=== PATIENT | female | born 2000 | race Caucasian/White ===

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

== ENCOUNTER → 2022-05-14 | Outpatient (CLI) | payer OTHER ==
[2022-05-14 13:03] VITALS: BP 120/69; PULSE 128; RESP 18; TEMP 98.2
--- NOTE | 2022-05-14 13:31 | P.GSHP ---
History of Present Illness H&P Date: 05/14/22 Chief Complaint: Bilateral macromastia Chiquis is a 22 year old white female seen in consultation for Dr. Mccabe regarding macromastia. She is complaining of significant lower mid back pain related to the size of her breasts. She also complains of shoulder notching. Her bra size is a 52. She is not complaining of any fungal infections under her breasts. She has not had any mammogram or ultrasound performed. She is not complaining of any lumps masses or nodules in either breast. She is not complaining of any nipple discharge she does have eczema on her breast. Caffeine: 1 can pop/day nicotine:none chocolate: none BCP: 2 months; stopped Family history: mother: colon cancer maternal grandmother: cancer ? type Hormonal History: menarche: 10 G0 periods regular; LMP 3 weeks ago Surgical History: none Medical History: allergies shots BID Social History: nicotine: none alcohol: none drugs: none - Constitutional Constitutional: Denies chills, Denies fever - EENT Eyes: denies blurred vision, denies pain Ears: deny: decreased hearing, tinnitus Ears, nose, mouth and throat: Reports headache, Denies sore throat - Breasts Breasts: bilateral: as per HPI - Cardiovascular Cardiovascular: Denies chest pain, Denies shortness of breath - Respiratory Respiratory: Denies cough, Denies 7 - Gastrointestinal Gastrointestinal: Denies abdominal pain, Denies diarrhea, Denies nausea, Denies vomiting - Genitourinary (Female) Genitourinary: Denies dysuria, Denies hematuria - Menstruation Menstruation: Reports period normal - Musculoskeletal Musculoskeletal: Denies myalgias - Integumentary Comment: Eczema seeing a motor racer in June Integumentary: Denies pruritus, Denies rash - Neurological Neurological: Denies numbness, Denies weakness - Psychiatric Psychiatric: Denies anxiety, Denies depression - Endocrine Endocrine: Denies fatigue, Denies weight change - Hematologic/Lymphatic Comment: none - Allergic/Immunologic Allergic/Immunologic: Reports as per HPI, Reports seasonal allergies Past Medical History Past Medical History: No Reported History History of Any Multi-Drug Resistant Organisms: None Reported Past Surgical History: No Surgical Hx Reported Past Psychological History: No Psychological Hx Reported Smoking Status: Never smoker Past Alcohol Use History: None Reported Past Drug Use History: None Reported Medications and Allergies Home Medications Medication Instructions Recorded Confirmed Type Loratadine [Claritin] 10 mg PO DAILY #30 tab 08/31/17 05/14/22 Rx Hydrocortisone Cream 1 applic TOPICAL BID PRN #30 gm 02/19/18 05/14/22 Rx [Hydrocortisone 1% Cream] Ibuprofen 800 mg PO Q6HR PRN #20 tablet 05/28/19 05/14/22 Rx Albuterol Inhaler [Ventolin Hfa 1 - 2 puff INHALATION RT-Q6H PRN 06/15/19 05/14/22 Rx Inhaler] #1 inhaler Clotrimazole Cream [Lotrimin Cream] 1 applic TOPICAL BID 05/14/22 05/14/22 History Fluticasone Nasal [place] [Flonase 2 spr EA NOSTRIL DAILY PRN 05/14/22 05/14/22 History Nasal [place]] Montelukast [Singulair] 10 mg PO DAILY 05/14/22 05/14/22 History Allergies Allergy/AdvReac Type Severity Reaction Status Date / Time cat dander Allergy Unknown Verified 05/14/22 12:56 peanut Allergy Anaphylaxis Verified 05/14/22 12:56 tree nut Allergy Anaphylaxis Verified 05/14/22 12:56 Surgical - Exam Vital Signs Temp Pulse Resp BP Pulse Ox 98.2 F 128 H 18 120/69 96 05/14/22 13:00 05/14/22 13:00 05/14/22 13:00 05/14/22 13:00 05/14/22 13:00 BMI: 45.4 - General no distress - Eyes normal ocular movement - ENT no hearing loss - Neck trachea midline - Respiratory normal respiratory effort, clear to auscultation - Cardiovascular Rhythm: regular Heart Sounds: normal: S1, S2 - Abdomen Abdomen: soft, non tender, no guarding, no rigid, no rebound - Integumentary Eczema - Neurologic no disoriented, no combative - Musculoskeletal normal gait - Psychiatric oriented to time, oriented to person, oriented to place, speech is normal, memory intact Breast Exam: BRA: 50G Inspection: The lateral grade 3 ptosis, eczema at the nipple areolar region on both breast, bilateral macromastia Palpation: Right breast: Multi-positional exam fibrocystic changes no dominant masses or nodules of concern Right axilla: No adenopathy of concern Left breast: Multi-positional exam fibrocystic changes no dominant masses or nodules of concern Left axilla: No adenopathy of concern Assessment and Plan Assessment: Impression: Symptomatic bilateral macromastia BMI 45.4 Bilateral eczema nipple areolar complexes Plan: Follow-up with dermatology Encourage the patient to lose weight; will follow up after loses 50 pounds CC: Fabio Rubio NP
== END ==
LOC: WWCWWP 12:46
PROVIDERS: ATTEND Surgery
DX: Z85.3 Personal history of malignant neoplasm of breast (principal); N60.11 Diffuse cystic mastopathy of right breast; N60.12 Diffuse cystic mastopathy of left breast; Z91.010 Allergy to peanuts; Z91.018 Allergy to other foods; Z91.048 Other nonmedicinal substance allergy status

== ENCOUNTER 2023-02-20 16:55 | Emergency (ER) | payer OTHER ==
[2023-02-20] MEDS ORDERED: PHENAZOPYRIDINE 200 MG TAB PO STA (17:34)
[2023-02-20] MEDS ORDERED: IBUPROFEN 800 MG TAB PO STA (17:34)
[2023-02-20 18:04] LABS: Appearance,Urine Cloudy (Clear); Bacteria,Urine Rare /hpf; Bilirubin,Urine Negative (Negative); Blood,Urine Small (Negative); Color,Urine Yellow; Glucose,Urine (UA) Negative (Negative); Ketones,Urine Negative (Negative); Leukocyte Esterase,Urine Small (Negative); Mucus,Urine Many /hpf; Nitrite,Urine Negative (Negative); PH, Urine 5.5 (5.0-8.0); Protein,Urine Trace (Negative); RBC,Urine 53 /hpf (0-5); Specific Gravity,Urine 1.025 (1.001-1.035); Squamous Epithelial Cell,Urine 21 /hpf (0-4); Urobilinogen,Urine <2.0 mg/dL (<2.0); WBC,Urine 5 /hpf (0-5)
--- NOTE | 2023-02-20 19:12 | CT ---
EXAMINATION TYPE: CT abdomen pelvis wo con DATE OF EXAM: 02/20/2023 COMPARISON: None INDICATION: Right flank pain x 1 week with hematuria DLP: 1784 mGycm, Automated exposure control for dose reduction was used. CONTRAST: 0 mL of Isovue 300. Study performed without Oral Contrast TECHNIQUE: Axial images were obtained from above the diaphragm to the pubic rami in the axial plane a t 5 mm thick sections. Reconstructed images are reviewed on the computer in the coronal plane. FINDINGS: Limited CT sections are obtained the lung bases. The lung bases are clear. CT ABDOMEN: Liver: Normal Spleen: Normal Pancreas: Normal Adrenal glands: The adrenal glands are normal. Gallbladder: Normal Kidneys: No masses are evident. No hydronephrosis is present. No cysts are present. There is a non obstructing renal stone superior pole right kidney measuring 0.3 cm. There is a nonobstructing inferi or pole right renal calcification 0.2 cm. No hydroureter is evident. Aorta: Vascular calcification is within the aorta. Inferior vena cava: Normal. CT PELVIS: Loops of bowel within the abdomen and pelvis are normal. This study is a lateral contrast limitin g bowel evaluation Appendix: Normal as visualized. Urinary bladder: Normal. Genitourinary structures: Uterus is unremarkable. Adnexa are normal. Osseous structures: No suspicious lytic or sclerotic lesions. IMPRESSION: 1. Nonobstructing punctate renal stones present bilaterally.
--- NOTE | 2023-02-20 19:41 | ED ---
Back Pain HPI - General Chief Complaint: Back Pain/Injury Stated Complaint: Back pain Time Seen by Provider: 02/20/23 17:14 Source: patient - History of Present Illness Initial Comments: Patient is a 23-year-old female who presents to the emergency department for back pain. Patient has burning with urination which started one week ago. Today she started to have right back pain. Denies abdominal pain, nausea, vomiting. Denies fever and chills. Denies history of kidney infection and stone. - Related Data Home Medications Medication Instructions Recorded Confirmed Clotrimazole Cream [Lotrimin Cream] 1 applic TOPICAL BID 05/14/22 05/14/22 Fluticasone Nasal [place] [Flonase 2 spr EA NOSTRIL DAILY PRN 05/14/22 05/14/22 Nasal [place]] Montelukast [Singulair] 10 mg PO DAILY 05/14/22 05/14/22 Previous Rx's Medication Instructions Recorded Loratadine [Claritin] 10 mg PO DAILY #30 tab 08/31/17 Hydrocortisone Cream 1 applic TOPICAL BID PRN #30 gm 02/19/18 [Hydrocortisone 1% Cream] Ibuprofen 800 mg PO Q6HR PRN #20 tablet 05/28/19 Albuterol Inhaler [Ventolin Hfa 1 - 2 puff INHALATION RT-Q6H PRN 06/15/19 Inhaler] #1 inhaler Cephalexin [Keflex] 500 mg PO Q12HR #14 cap 02/20/23 Phenazopyridine [Pyridium] 200 mg PO TID #6 tablet 02/20/23 Allergies Allergy/AdvReac Type Severity Reaction Status Date / Time cat dander Allergy Unknown Verified 02/20/23 17:11 peanut Allergy Anaphylaxis Verified 02/20/23 17:11 tree nut Allergy Anaphylaxis Verified 02/20/23 17:11 Review of Systems ROS Statement: Those systems with pertinent positive or pertinent negative responses have been documented in the HPI. ROS Other: All systems not noted in ROS Statement are negative. Past Medical History Past Medical History: No Reported History History of Any Multi-Drug Resistant Organisms: None Reported Past Surgical History: No Surgical Hx Reported Past Psychological History: No Psychological Hx Reported Smoking Status: Never smoker Past Alcohol Use History: None Reported Past Drug Use History: None Reported General Exam General appearance: alert Head exam: Present: atraumatic, normocephalic, normal inspection Eye exam: Present: normal appearance, PERRL, EOMI. Absent: scleral icterus, conjunctival injection, periorbital swelling Respiratory exam: Present: normal lung sounds bilaterally. Absent: respiratory distress, wheezes, rales, rhonchi, stridor Cardiovascular Exam: Present: regular rate, normal rhythm, normal heart sounds. Absent: systolic murmur, diastolic murmur, rubs, gallop, clicks Back exam: Present: paraspinal tenderness (right). Absent: CVA tenderness (R), CVA tenderness (L) Neurological exam: Present: alert Expanded Sensory exam: Upper Extremity Light Touch: Normal, Lower Extremity Light Touch: Normal Motor strength exam: RUE: 5, LUE: 5, RLE: 5, LLE: 5 Psychiatric exam: Present: normal affect, normal mood Skin exam: Present: warm, dry, intact, normal color. Absent: rash Course Vital Signs 02/20/23 02/20/23 02/20/23 17:07 18:53 21:29 Temperature 98.7 F 98.1 F 98.8 F Pulse Rate 122 H 101 H 81 Respiratory 18 18 16 Rate Blood Pressure 105/69 109/76 120/83 O2 Sat by Pulse 95 99 95 Oximetry Medical Decision Making - Medical Decision Making Was pt. sent in by a medical professional or institution ([facility] Perdomo, RISK CONSULTING TREASURY DIRECTOR, urgent care, hospital, or [facility]...) When possible be specific @ -No Did you speak to anyone other than the patient for history (EMS, parent, family, police, friend...)? What history was obtained from this source @ -No Did you review nursing and triage notes (agree or disagree)? Why? @ -I reviewed and agree with nursing and triage notes Were old charts reviewed (outside hosp., previous admission, EMS record, old EKG, old radiological studies, urgent care reports/EKG's, [facility] records)? Report findings @ -No old charts were reviewed Differential Diagnosis (chest pain, altered mental status, abdominal pain women, abdominal pain men, vaginal bleeding, weakness, fever, dyspnea, syncope, headache, dizziness, GI bleed, back pain, seizure, CVA, palpatations, mental health)? @ -UTI, kidney infection, kidney stone. Discussed this is not meant to be all-inclusive EKG interpreted by me (3pts min.). @ -As above X-rays interpreted by me (1pt min.). @ -None done CT interpreted by me (1pt min.). @ -Nonobstructing punctate renal stones bilaterally no hydronephrosis U/S interpreted by me (1pt. min.). @ -None done What testing was considered but not performed or refused? (CT, X-rays, U/S, l abs)? Why? @ -None What meds were considered but not given or refused? Why? @ -Patient declined IV Rocephin and fluids mother wants to go home Did you discuss the management of the patient with other professionals (professionals i.e. , PA, RISK CONSULTING TREASURY DIRECTOR, lab, RT, psych nurse, social service director, demo coordinator, teacher, marketing officer, case aide)? Give summary @ -No Was smoking cessation discussed for >3mins.? @ -No Was critical care preformed (if so, how long)? @ -No Were there social determinants of health that impacted care today? How? (Homelessness, low income, unemployed, alcoholism, drug addiction, transportation, low edu. Level, literacy, decrease access to med. care, correction, rehab)? @ -No Was there de-escalation of care discussed even if they declined (Discuss DNR or withdrawal of care, Hospice)? DNR status @ -No What co-morbidities impacted this encounter? (DM, HTN, Smoking, COPD, CAD, Cancer, CVA, ARF, Chemo, Hep., AIDS, mental health diagnosis, sleep apnea, morbid obesity)? @ -None Was patient admitted / discharged? Hospital course, mention meds given and route, prescriptions, significant lab abnormalities, going to OR and other pertinent info. @ -Patient presented for back pain and dysuria. She is nontoxic appearing, afebrile. No CVA tenderness.Urinalysis reveals rare bacteria with small leukocyte esterase, 53 rbc's. With concern for kidney stone laboratory studies and CT obtained. There is mild leukocytosis at 13.4. CT interpreted by myself shows bilateral nonobstructing stones no hydronephrosis. No evidence of pyelonephritis. Pain controlled. Results discussed with patient.. Patient will be discharged with Keflex for urinary tract infection. Discussed return parameters in detail Undiagnosed new problem with uncertain prognosis? @ -No Drug Therapy requiring intensive monitoring for toxicity (Heparin, Nitro, Insulin, Cardizem)? @ -No Were any procedures done? @ -No Diagnosis/symptom? @ -UTI Acute, or Chronic, or Acute on Chronic? @ -[Acute Uncomplicated (without systemic symptoms) or Complicated (systemic symptoms)? @ -uncomplicated Side effects of treatment? @ -No Exacerbation, Progression, or Severe Exacerbation? @ -No Poses a threat to life or bodily function? How? (Chest pain, USA, [place], pneumonia, PE, COPD, DKA, ARF, appy, cholecystitis, CVA, Diverticulitis, Homicidal, Suicidal, threat to staff... and all critical care pts) @ -No Dr. Oconnell is my attending - Lab Data Result diagrams: 02/20/23 20:06 02/20/23 20:06 Lab Results 02/20/23 02/20/23 02/20/23 Range/Units 17:23 17:23 18:38 WBC (3.8-10.6) k/uL RBC (3.80-5.40) m/uL Hgb (11.4-16.0) gm/dL Hct (34.0-46.0) % MCV (80.0-100.0) fL MCH (25.0-35.0) pg MCHC (31.0-37.0) g/dL RDW (11.5-15.5) % Plt Count (150-450) k/uL MPV Neutrophils % % Lymphocytes % % Monocytes % % Eosinophils % % Basophils % % Neutrophils # (1.3-7.7) k/uL Lymphocytes # (1.0-4.8) k/uL Monocytes # (0-1.0) k/uL Eosinophils # (0-0.7) k/uL Basophils # (0-0.2) k/uL Sodium (137-145) mmol/L Potassium (3.5-5.1) mmol/L Chloride (98-107) mmol/L Carbon Dioxide (22-30) mmol/L Anion Gap mmol/L BUN (7-17) mg/dL Creatinine (0.52-1.04) mg/dL Est GFR (CKD-EPI)AfAm (>60 ml/min/1.73 sqM) Est GFR (CKD-EPI)NonAf (>60 ml/min/1.73 sqM) Glucose (74-99) mg/dL Plasma Lactic Acid Max 1.4 (0.7-2.0) mmol/L Calcium (8.4-10.2) mg/dL Total Bilirubin (0.2-1.3) mg/dL AST (14-36) U/L ALT (4-34) U/L Alkaline Phosphatase (38-126) U/L Total Protein (6.3-8.2) g/dL Albumin (3.5-5.0) g/dL Lipase (23-300) U/L Urine Color Yellow Urine Appearance Cloudy H (Clear) Urine pH 5.5 (5.0-8.0) Ur Specific [place] 1.025 (1.001-1.035) Urine Protein Trace H (Negative) Urine Glucose (UA) Negative (Negative) Urine Ketones Negative (Negative) Urine Blood Small H (Negative) Urine Nitrite Negative (Negative) Urine Bilirubin Negative (Negative) Urine Urobilinogen <2.0 (<2.0) mg/dL Ur Leukocyte Esterase Small H (Negative) Urine RBC 53 H (0-5) /hpf Urine WBC 5 (0-5) /hpf Ur Squamous Epith Cells 21 H (0-4) /hpf Urine Bacteria Rare H (None) /hpf Urine Mucus Many H (None) /hpf Urine HCG, Qual Not Detected (Not Detectd) 02/20/23 02/20/23 Range/Units 20:06 20:06 WBC 13.4 H (3.8-10.6) k/uL RBC 5.36 (3.80-5.40) m/uL Hgb 14.3 (11.4-16.0) gm/dL Hct 44.1 (34.0-46.0) % MCV 82.3 (80.0-100.0) fL MCH 26.6 (25.0-35.0) pg MCHC 32.4 (31.0-37.0) g/dL RDW 15.3 (11.5-15.5) % Plt Count 444 (150-450) k/uL MPV 7.5 Neutrophils % 76 % Lymphocytes % 17 % Monocytes % 5 % Eosinophils % 1 % Basophils % 0 % Neutrophils # 10.1 H (1.3-7.7) k/uL Lymphocytes # 2.3 (1.0-4.8) k/uL Monocytes # 0.6 (0-1.0) k/uL Eosinophils # 0.2 (0-0.7) k/uL Basophils # 0.1 (0-0.2) k/uL Sodium 139 (137-145) mmol/L Potassium 4.6 (3.5-5.1) mmol/L Chloride 106 (98-107) mmol/L Carbon Dioxide 20 L (22-30) mmol/L Anion Gap 13 mmol/L BUN 10 (7-17) mg/dL Creatinine 0.54 (0.52-1.04) mg/dL Est GFR (CKD-EPI)AfAm >90 (>60 ml/min/1.73 sqM) Est GFR (CKD-EPI)NonAf >90 (>60 ml/min/1.73 sqM) Glucose 87 (74-99) mg/dL Plasma Lactic Acid Max (0.7-2.0) mmol/L Calcium 9.8 (8.4-10.2) mg/dL Total Bilirubin 0.7 (0.2-1.3) mg/dL AST 27 (14-36) U/L ALT 21 (4-34) U/L Alkaline Phosphatase 87 (38-126) U/L Total Protein 7.8 (6.3-8.2) g/dL Albumin 4.1 (3.5-5.0) g/dL Lipase 45 (23-300) U/L Urine Color Urine Appearance (Clear) Urine pH (5.0-8.0) Ur Specific [place] (1.001-1.035) Urine Protein (Negative) Urine Glucose (UA) (Negative) Urine Ketones (Negative) Urine Blood (Negative) Urine Nitrite (Negative) Urine Bilirubin (Negative) Urine Urobilinogen (<2.0) mg/dL Ur Leukocyte Esterase (Negative) Urine RBC (0-5) /hpf Urine WBC (0-5) /hpf Ur Squamous Epith Cells (0-4) /hpf Urine Bacteria (None) /hpf Urine Mucus (None) /hpf Urine HCG, Qual (Not Detectd) Disposition Clinical Impression: UTI (urinary tract infection) Disposition: HOME SELF-CARE Condition: Good Instructions (If sedation given, give patient instructions): Urinary Tract Infection in Women (ED) Additional Instructions: Increase water intake. Take medication as directed. Please follow-up with your primary care provider in 1-2 days. Return to the emergency department if you experience new, concerning, or worsening symptoms, including but not limited to fever and vomiting. Prescriptions: Cephalexin [Keflex] 500 mg PO Q12HR #14 cap Phenazopyridine [Pyridium] 200 mg PO TID #6 tablet Is patient prescribed a controlled substance at d/c from ED?: No Referrals: Neela Bailon MD [Primary Care Provider] - 1-2 days
[2023-02-20 20:30] LABS: Basophils # (A) 0.1 k/uL (0-0.2); Basophils % (A) 0 %; Eosinophils # (A) 0.2 k/uL (0-0.7); Eosinophils % (A) 1 %; HCT 44.1 % (34.0-46.0); HGB 14.3 gm/dL (11.4-16.0); Lymphocytes # (A) 2.3 k/uL (1.0-4.8); Lymphocytes % (A) 17 %; MCH 26.6 pg (25.0-35.0); MCHC 32.4 g/dL (31.0-37.0); MCV 82.3 fL (80.0-100.0); Mean Platelet Volume 7.5; Monocytes # (A) 0.6 k/uL (0-1.0); Monocytes % (A) 5 %; Neutrophils # (A) 10.1 k/uL (1.3-7.7); Neutrophils % (A) 76 %; Platelet Count 444 k/uL (150-450); RBC 5.36 m/uL (3.80-5.40); RDW 15.3 % (11.5-15.5); WBC 13.4 k/uL (3.8-10.6)
[2023-02-20 20:48] LABS: ALT 21 U/L (4-34); African American GFR (CKD) >90 (>60 ml/min/1.73 sqM); Albumin 4.1 g/dL (3.5-5.0); Anion Gap 13 mmol/L; Blood Urea Nitrogen 10 mg/dL (7-17); Calcium 9.8 mg/dL (8.4-10.2); Carbon Dioxide 20 mmol/L (22-30); Chloride 106 mmol/L (98-107); Glucose 87 mg/dL (74-99); Lipase 45 U/L (23-300); Non-African American GFR(CKD) >90 (>60 ml/min/1.73 sqM); Sodium 139 mmol/L (137-145); Total Bilirubin 0.7 mg/dL (0.2-1.3); Total Protein 7.8 g/dL (6.3-8.2)
[2023-02-20 20:51] LABS: AST 27 U/L (14-36); Alkaline Phosphatase 87 U/L (38-126); Potassium 4.6 mmol/L (3.5-5.1)
[2023-02-20] MEDS ORDERED: SODIUM CHLORIDE 0.9% 1,000 ML IV STA (20:59)
[2023-02-20] MEDS ORDERED: cefTRIAXone IN SWFI 1,000 MG/10 ML SYRINGE IVP STA (20:59)
[2023-02-20] MEDS ORDERED: CEPHALEXIN 500 MG CAP PO STA (21:05)
[2023-02-20 21:33] VITALS: BP 120/83; PULSE 81; RESP 16; TEMP 98.8
== END 2023-02-20 21:30 | disposition home or self-care (01) ==
LOC: EC 16:55
DX: N39.0 Urinary tract infection, site not specified (principal); N20.0 Calculus of kidney; Z91.010 Allergy to peanuts; Z91.018 Allergy to other foods; Z88.8 Allergy status to other drugs, medicaments and biological substances
CPT/HCPCS: 36415; 74176; 80053; 81001; 81025; 83605; 83690; 85025; 87086; 99284

== ENCOUNTER 2023-03-19 08:23 | Emergency (ER) | payer OTHER ==
[2023-03-19 08:36] VITALS: PULSE 94; RESP 20
--- NOTE | 2023-03-19 09:13 | ED ---
General Adult HPI - General Chief complaint: Abdominal Pain Stated complaint: abd pain/vomiting Source: patient, RN notes reviewed Mode of arrival: ambulatory Limitations: no limitations - History of Present Illness Initial comments: Patient seen for advanced triage purposes in waiting room: Patient's mother reports she has been throwing up this morning and having bad left side pain. The pain is constant, 9/10. Patient denies diarrhea. Denies fevers. She denies any pain with urination. She had similar pain about a month ago and was seen here in the emergency room but a cause was not found. HPI see above - Related Data Home Medications Medication Instructions Recorded Confirmed Clotrimazole Cream [Lotrimin Cream] 1 applic TOPICAL BID 05/14/22 05/14/22 Fluticasone Nasal [place] [Flonase 2 spr EA NOSTRIL DAILY PRN 05/14/22 05/14/22 Nasal [place]] Montelukast [Singulair] 10 mg PO DAILY 05/14/22 05/14/22 Previous Rx's Medication Instructions Recorded Loratadine [Claritin] 10 mg PO DAILY #30 tab 08/31/17 Hydrocortisone Cream 1 applic TOPICAL BID PRN #30 gm 02/19/18 [Hydrocortisone 1% Cream] Ibuprofen 800 mg PO Q6HR PRN #20 tablet 05/28/19 Albuterol Inhaler [Ventolin Hfa 1 - 2 puff INHALATION RT-Q6H PRN 06/15/19 Inhaler] #1 inhaler Cephalexin [Keflex] 500 mg PO Q12HR #14 cap 02/20/23 Phenazopyridine [Pyridium] 200 mg PO TID #6 tablet 02/20/23 Ciprofloxacin HCl [Cipro] 500 mg PO Q12HR 10 Days #20 tab 03/19/23 HYDROcodone/APAP 5-325MG [[place] 1 tab PO Q6HR PRN #12 tab 03/19/23 5-325] Metoclopramide HCl [Reglan] 5 mg PO Q6H PRN #20 tab 03/19/23 Tamsulosin [Flomax] 0.4 mg PO DAILY #20 cap 03/19/23 Allergies Allergy/AdvReac Type Severity Reaction Status Date / Time cat dander Allergy Unknown Verified 03/19/23 08:30 peanut Allergy Anaphylaxis Verified 03/19/23 08:30 tree nut Allergy Anaphylaxis Verified 03/19/23 08:30 Review of Systems ROS Statement: Those systems with pertinent positive or pertinent negative responses have been documented in the HPI. ROS Other: All systems not noted in ROS Statement are negative. Past Medical History Past Medical History: No Reported History History of Any Multi-Drug Resistant Organisms: None Reported Past Surgical History: No Surgical Hx Reported Past Psychological History: No Psychological Hx Reported Smoking Status: Never smoker Past Alcohol Use History: None Reported Past Drug Use History: None Reported General Exam Limitations: no limitations General appearance: alert, in no apparent distress Head exam: Present: atraumatic Eye exam: Present: normal appearance, PERRL, EOMI. Absent: scleral icterus, conjunctival injection ENT exam: Present: normal exam, mucous membranes moist Neck exam: Present: normal inspection, full ROM. Absent: tenderness Respiratory exam: Present: normal lung sounds bilaterally. Absent: respiratory distress, wheezes Cardiovascular Exam: Present: regular rate, normal rhythm, normal heart sounds GI/Abdominal exam: Present: soft, normal bowel sounds. Absent: distended, tenderness Neurological exam: Present: alert Course Vital Signs 03/19/23 03/19/23 08:26 14:32 Temperature 98.7 F 97.7 F Pulse Rate 94 Respiratory 20 Rate Blood Pressure 117/77 118/67 O2 Sat by Pulse 99 Oximetry Medical Decision Making - Medical Decision Making Vitals are stable. Patient appears in pain on presentation. CBC 16.9. Urinalysis contaminated however does show moderate bacteria with 22 white cells and 170 red blood cells. Ultrasound showed hydronephrosis but once there was concern for septic stone CT was also ordered which showed a 3 mm UVJ stone, obstructing. Contacted Dr. Hubbard given concern for septic stone. He is ok with patient going home and being seen next week as long as she is comfortable and afebrile. Recommends starting patient on Cipro, Flomax and pain medication and obtaining a urine culture. Patient reevaluated, she is resting comfortably, asleep. Pain is much better. She prefers discharge home. I discussed strict return parameters with patient and her mother for uncontrolled pain and fever and they're understanding Dr. Hubbard will see the patient by Tuesday if they call the office on Tuesday Was pt. sent in by a medical professional or institution (, PA, COMPUTER AIDED DESIGN DRAFTER, urgent care, hospital, or senior living...) When possible be specific @ -[No] Did you speak to anyone other than the patient for history (EMS, parent, family, police, friend...)? What history was obtained from this source @ -Family Did you review nursing and triage notes (agree or disagree)? Why? @ -[I reviewed and agree with nursing and triage notes] Were old charts reviewed (outside hosp., previous admission, EMS record, old EKG, old radiological studies, urgent care reports/EKG's, senior living records)? Report findings @ -Previous ER visit was reviewed as well as computed tomography scan showing stones within the kidney Differential Diagnosis (chest pain, altered mental status, abdominal pain women, abdominal pain men, vaginal bleeding, weakness, fever, dyspnea, syncope, headache, dizziness, GI bleed, back pain, seizure, CVA, palpatations, mental health)? @ -Differential Abdominal Pain Women: Appendicitis, Cholecystitis, diverticulosis, ischemic bowel, pancreatitis, hepatitis, UTI, gastroenteritis, AAA, incarcerated hernia, bowel obstruction, constipation, inflammatory bowel, hepatitis, peptic ulcer disease, splenic infarction, perforated viscus, vulvitis, ovarian torsion, PID, kidney stone, placenta abruption, this is not meant to be an all-inclusive list EKG interpreted by me (3pts min.). @ -None X-rays interpreted by me (1pt min.). @ -No obvious stone CT interpreted by me (1pt min.). @ -Kidney stone in UVJ U/S interpreted by me (1pt. min.). @ -Left hydronephrosis What testing was considered but not performed or refused? (CT, X-rays, U/S, labs)? Why? @ -[None] What meds were considered but not given or refused? Why? @ -[None] Did you discuss the management of the patient with other professionals (professionals i.e. DrUmm, PA, COMPUTER AIDED DESIGN DRAFTER, lab, RT, psych nurse, licensed clinical social worker, beam department supervisor, teacher, commercial account officer, pillowcase folder)? Give summary @ -Urologist Dr. Hubbard Was smoking cessation discussed for >3mins.? @ -[No] Was critical care preformed (if so, how long)? @ -[No] Were there social determinants of health that impacted care today? How? (Homelessness, low income, unemployed, alcoholism, drug addiction, transportati on, low edu. Level, literacy, decrease access to med. care, detention, rehab)? @ -[No] Was there de-escalation of care discussed even if they declined (Discuss DNR or withdrawal of care, Hospice)? DNR status @ -[No] What co-morbidities impacted this encounter? (DM, HTN, Smoking, COPD, CAD, Cancer, CVA, ARF, Chemo, Hep., AIDS, mental health diagnosis, sleep apnea, morbid obesity)? @ -[None] Was patient admitted / discharged? Hospital course, mention meds given and route, prescriptions, significant lab abnormalities, going to OR and other pertinent info. @ -Vitals are stable. Patient appears in pain on presentation. CBC 16.9. Urinalysis contaminated however does show moderate bacteria with 22 white cells and 170 red blood cells. Ultrasound showed hydronephrosis but once there was concern for septic stone CT was also ordered which showed a 3 mm UVJ stone, obstructing. Contacted Dr. Hubbard given concern for septic stone. He is ok with patient going home and being seen next week as long as she is comfortable and afebrile. Recommends starting patient on Cipro, Flomax and pain medication and obtaining a urine culture. Patient reevaluated, she is resting comfortably, asleep. Pain is much better. Given 2 L of saline, 2 g of rocephin. She prefers discharge home. I discussed strict return parameters with patient and her mother for uncontrolled pain and fever and they're understanding Dr. Hubbard will see the patient by Tuesday if they call the office on Tuesday Undiagnosed new problem with uncertain prognosis? @ -[No] Drug Therapy requiring intensive monitoring for toxicity (Heparin, Nitro, Insulin, Cardizem)? @ -[No] Were any procedures done? @ -[No] Diagnosis/symptom? @ -kidney stone, UTI Acute, or Chronic, or Acute on Chronic? @ -Acute Uncomplicated (without systemic symptoms) or Complicated (systemic symptoms)? @ -uncomplicated Side effects of treatment? @ -[No] Exacerbation, Progression, or Severe Exacerbation? @ -[No] Poses a threat to life or bodily function? How? (Chest pain, [place], [place], pneumonia, PE, COPD, DKA, ARF, appy, cholecystitis, CVA, Diverticulitis, Homicidal, Suicidal, threat to staff... and all critical care pts) @ -[No] - Lab Data Result diagrams: 03/19/23 09:55 03/19/23 09:55 Lab Results 03/19/23 03/19/23 03/19/23 Range/Units 09:55 09:55 09:55 WBC 16.9 H (3.8-10.6) k/uL RBC 5.23 (3.80-5.40) m/uL Hgb 14.2 (11.4-16.0) gm/dL Hct 43.5 (34.0-46.0) % MCV 83.2 (80.0-100.0) fL MCH 27.1 (25.0-35.0) pg MCHC 32.6 (31.0-37.0) g/dL RDW 14.6 (11.5-15.5) % Plt Count 434 (150-450) k/uL MPV 7.5 Neutrophils % 86 % Lymphocytes % 8 % Monocytes % 4 % Eosinophils % 1 % Basophils % 0 % Neutrophils # 14.6 H (1.3-7.7) k/uL Lymphocytes # 1.3 (1.0-4.8) k/uL Monocytes # 0.7 (0-1.0) k/uL Eosinophils # 0.1 (0-0.7) k/uL Basophils # 0.0 (0-0.2) k/uL Sodium (137-145) mmol/L Potassium (3.5-5.1) mmol/L Chloride (98-107) mmol/L Carbon Dioxide (22-30) mmol/L Anion Gap mmol/L BUN (7-17) mg/dL Creatinine (0.52-1.04) mg/dL Est GFR (CKD-EPI)AfAm (>60 ml/min/1.73 sqM) Est GFR (CKD-EPI)NonAf (>60 ml/min/1.73 sqM) Glucose (74-99) mg/dL Calcium (8.4-10.2) mg/dL Total Bilirubin (0.2-1.3) mg/dL AST (14-36) U/L ALT (4-34) U/L Alkaline Phosphatase (38-126) U/L Total Protein (6.3-8.2) g/dL Albumin (3.5-5.0) g/dL Urine Color Yellow Urine Appearance Turbid H (Clear) Urine pH 5.5 (5.0-8.0) Ur Specific [place] 1.029 (1.001-1.035) Urine Protein 1+ H (Negative) Urine Glucose (UA) Negative (Negative) Urine Ketones Negative (Negative) Urine Blood Large (Negative) Urine Nitrite Negative (Negative) Urine Bilirubin Negative (Negative) Urine Urobilinogen <2.0 (<2.0) mg/dL Ur Leukocyte Esterase Large (Negative) Urine RBC 170 H (0-5) /hpf Urine WBC 22 H (0-5) /hpf Ur Squamous Epith Cells 146 H (0-4) /hpf Amorphous Sediment Rare H (None) /hpf Urine Bacteria Moderate H (None) /hpf Urine Mucus Many H (None) /hpf Urine HCG, Qual Not Detected (Not Detectd) 03/19/23 Range/Units 09:55 WBC (3.8-10.6) k/uL RBC (3.80-5.40) m/uL Hgb (11.4-16.0) gm/dL Hct (34.0-46.0) % MCV (80.0-100.0) fL MCH (25.0-35.0) pg MCHC (31.0-37.0) g/dL RDW (11.5-15.5) % Plt Count (150-450) k/uL MPV Neutrophils % % Lymphocytes % % Monocytes % % Eosinophils % % Basophils % % Neutrophils # (1.3-7.7) k/uL Lymphocytes # (1.0-4.8) k/uL Monocytes # (0-1.0) k/uL Eosinophils # (0-0.7) k/uL Basophils # (0-0.2) k/uL Sodium 139 (137-145) mmol/L Potassium 4.3 (3.5-5.1) mmol/L Chloride 104 (98-107) mmol/L Carbon Dioxide 23 (22-30) mmol/L Anion Gap 12 mmol/L BUN 10 (7-17) mg/dL Creatinine 0.79 (0.52-1.04) mg/dL Est GFR (CKD-EPI)AfAm >90 (>60 ml/min/1.73 sqM) Est GFR (CKD-EPI)NonAf >90 (>60 ml/min/1.73 sqM) Glucose 130 H (74-99) mg/dL Calcium 9.6 (8.4-10.2) mg/dL Total Bilirubin 0.4 (0.2-1.3) mg/dL AST 21 (14-36) U/L ALT 24 (4-34) U/L Alkaline Phosphatase 72 (38-126) U/L Total Protein 7.8 (6.3-8.2) g/dL Albumin 4.2 (3.5-5.0) g/dL Urine Color Urine Appearance (Clear) Urine pH (5.0-8.0) Ur Specific [place] (1.001-1.035) Urine Protein (Negative) Urine Glucose (UA) (Negative) Urine Ketones (Negative) Urine Blood (Negative) Urine Nitrite (Negative) Urine Bilirubin (Negative) Urine Urobilinogen (<2.0) mg/dL Ur Leukocyte Esterase (Negative) Urine RBC (0-5) /hpf Urine WBC (0-5) /hpf Ur Squamous Epith Cells (0-4) /hpf Amorphous Sediment (None) /hpf Urine Bacteria (None) /hpf Urine Mucus (None) /hpf Urine HCG, Qual (Not Detectd) Disposition Clinical Impression: Kidney stone, UTI (urinary tract infection) Disposition: HOME SELF-CARE Condition: Fair Instructions (If sedation given, give patient instructions): Kidney Stones (ED) Additional Instructions: Please take medication as directed. Call Dr Hubbard's office Tuesday to set up an appointment. He will see you by Tuesday (tell them you were in the ER and that is what he recommended). If you get any fevers or your pain is uncontrolled return to the ER. Prescriptions: Ciprofloxacin HCl [Cipro] 500 mg PO Q12HR 10 Days #20 tab Tamsulosin [Flomax] 0.4 mg PO DAILY #20 cap HYDROcodone/APAP 5-325MG [[place] 5-325] 1 tab PO Q6HR PRN #12 tab PRN Reason: Pain Metoclopramide HCl [Reglan] 5 mg PO Q6H PRN #20 tab PRN Reason: Nausea Is patient prescribed a controlled substance at d/c from ED?: No Referrals: Neela Bailon MD [Primary Care Provider] - 1-2 days Time of Disposition: 15:06
[2023-03-19] MEDS ORDERED: ONDANSETRON 4 MG/2 ML VIAL IVP STA (09:34)
[2023-03-19] MEDS ORDERED: HYDROmorphone 0.5 MG/0.5 ML SYRINGE IVP STA ×2 (09:34→13:35)
[2023-03-19] MEDS ORDERED: SODIUM CHLORIDE 0.9% 1,000 ML IV STA ×2 (09:34→13:28)
[2023-03-19 10:18] LABS: Basophils % (A) 0 %; Eosinophils # (A) 0.1 k/uL (0-0.7); Eosinophils % (A) 1 %; HCT 43.5 % (34.0-46.0); HGB 14.2 gm/dL (11.4-16.0); Lymphocytes # (A) 1.3 k/uL (1.0-4.8); Lymphocytes % (A) 8 %; MCH 27.1 pg (25.0-35.0); MCHC 32.6 g/dL (31.0-37.0); MCV 83.2 fL (80.0-100.0); Mean Platelet Volume 7.5; Monocytes # (A) 0.7 k/uL (0-1.0); Monocytes % (A) 4 %; Neutrophils # (A) 14.6 k/uL (1.3-7.7); Neutrophils % (A) 86 %; Platelet Count 434 k/uL (150-450); RBC 5.23 m/uL (3.80-5.40); RDW 14.6 % (11.5-15.5); WBC 16.9 k/uL (3.8-10.6)
[2023-03-19 10:27] LABS: ALT 24 U/L (4-34); AST 21 U/L (14-36); African American GFR (CKD) >90 (>60 ml/min/1.73 sqM); Albumin 4.2 g/dL (3.5-5.0); Alkaline Phosphatase 72 U/L (38-126); Anion Gap 12 mmol/L; Blood Urea Nitrogen 10 mg/dL (7-17); Calcium 9.6 mg/dL (8.4-10.2); Carbon Dioxide 23 mmol/L (22-30); Chloride 104 mmol/L (98-107); Glucose 130 mg/dL (74-99); Non-African American GFR(CKD) >90 (>60 ml/min/1.73 sqM); Potassium 4.3 mmol/L (3.5-5.1); Sodium 139 mmol/L (137-145); Total Bilirubin 0.4 mg/dL (0.2-1.3); Total Protein 7.8 g/dL (6.3-8.2)
[2023-03-19 10:53] LABS: Appearance,Urine Turbid (Clear); Bilirubin,Urine Negative (Negative); Blood,Urine Large (Negative); Color,Urine Yellow; Glucose,Urine (UA) Negative (Negative); Ketones,Urine Negative (Negative); PH, Urine 5.5 (5.0-8.0); Protein,Urine 1+ (Negative); Specific Gravity,Urine 1.029 (1.001-1.035)
[2023-03-19 10:54] LABS: Leukocyte Esterase,Urine Large (Negative); Nitrite,Urine Negative (Negative); Urobilinogen,Urine <2.0 mg/dL (<2.0)
[2023-03-19 10:56] LABS: Amorphous Sediment,Urine Rare /hpf; Bacteria,Urine Moderate /hpf; Mucus,Urine Many /hpf; RBC,Urine 170 /hpf (0-5); Squamous Epithelial Cell,Urine 146 /hpf (0-4); WBC,Urine 22 /hpf (0-5)
--- NOTE | 2023-03-19 11:27 | US ---
EXAMINATION TYPE: US kidneys/renal and bladder DATE OF EXAM: 03/19/2023 COMPARISON: NONE CLINICAL INDICATION: Female, 23 years old with history of left pain, kidney stone; known stones, left flank pain with N/V, large habitus EXAM MEASUREMENTS: Right Kidney: 10.6 x 4.4 x 4.9 cm Left Kidney: 10.1 x 5.6 x 5.1 cm bowel gas on 290lb patient limits views Right Kidney: No hydronephrosis or masses seen, unable to appreciate mild stones as noted on CT Left Kidney: mild hydronephrosis, unable to appreciate tiny stones as seen on CT Bladder: not distended No nephrolithiasis is seen. No masses are identified. The urinary bladder is poorly distended. IMPRESSION: Mild left-sided hydronephrosis suggested.
--- NOTE | 2023-03-19 11:49 | XR ---
EXAMINATION TYPE: XR KUB DATE OF EXAM: 03/19/2023 COMPARISON: NONE HISTORY: Pain TECHNIQUE: Single supine KUB image of the abdomen is obtained FINDINGS: Small bowel demonstrates no evidence for dilatation or air fluid levels. Gas and fecal material is seen in non-distended colon. No convincing evidence for pneumoperitoneum. No unusual calcifications. The lung bases are clear. The osseous structures are intact. IMPRESSION: 1. Overall nonobstructive bowel gas pattern.
--- NOTE | 2023-03-19 13:02 | CT ---
EXAMINATION TYPE: CT abdomen pelvis wo con DATE OF EXAM: 03/19/2023 COMPARISON: 02/20/2023 HISTORY: Rt sided pain CT DLP: 1321.4 mGycm Examination of the solid and hollow viscera is limited given the lack of contrast. FINDINGS: LUNG BASES: No evidence for nodule. No evidence for infiltrate. LIVER/GB: The gallbladder is unremarkable. No space-occupying hepatic lesion. PANCREAS: No pancreatic mass identified. No inflammatory process seen. SPLEEN: No evidence for splenomegaly. No intrasplenic lesions seen. ADRENALS: No adrenal nodules identified. No evidence for thickening. KIDNEYS: No evidence for renal mass. 3 mm left UVJ calculus resulting in mild left-sided hydrouretero nephrosis. There is mild left renal edema and superimposed infection is not excluded. 1 mm nonobstruc ting calculus lower pole right kidney. Right kidney is free of hydronephrosis. BOWEL: Appendix has a normal appearance. No evidence of bowel obstruction. No inflammatory process. Lymph nodes: No evidence for adenopathy greater than 1 cm. Abdominal aorta: Atheromatous changes seen. No evidence for aneurysm. Genital organs: No significant abnormality. Other: No significant abnormality. IMPRESSION: 3 mm left UVJ calculus resulting in mild left-sided hydroureteronephrosis. There is mild left renal e enrique and superimposed infection is not excluded.
[2023-03-19] MEDS ORDERED: cefTRIAXone IN SWFI 1,000 MG/10 ML SYRINGE IVP STA (13:28)
[2023-03-19 14:33] VITALS: BP 118/67; TEMP 97.7
== END 2023-03-19 15:44 | disposition home or self-care (01) ==
LOC: EC 08:23
DX: N13.6 Pyonephrosis (principal); Z91.010 Allergy to peanuts; Z91.018 Allergy to other foods; Z91.09 Other allergy status, other than to drugs and biological substances
CPT/HCPCS: 36415; 80053; 85025; 81001; 81025; 87086; 74018; 76770; 74176; 99285; 96374; 96375 ×2; 96376; J2405; J0696; J1170

== ENCOUNTER 2023-09-04 10:23 | Emergency (ER) | payer OTHER ==
[2023-09-04 11:04] VITALS: RESP 20; TEMP 98
[2023-09-04 11:44] LABS: Basophils # (A) 0.1 k/uL (0-0.2); Basophils % (A) 1 %; Eosinophils # (A) 0.2 k/uL (0-0.7); Eosinophils % (A) 2 %; HCT 44.6 % (34.0-46.0); HGB 14.1 gm/dL (11.4-16.0); Lymphocytes # (A) 1.7 k/uL (1.0-4.8); Lymphocytes % (A) 14 %; MCHC 31.7 g/dL (31.0-37.0); MCV 85.1 fL (80.0-100.0); Mean Platelet Volume 7.7; Monocytes # (A) 0.5 k/uL (0-1.0); Monocytes % (A) 4 %; Neutrophils # (A) 9.7 k/uL (1.3-7.7); Neutrophils % (A) 80 %; Platelet Count 516 k/uL (150-450); RBC 5.24 m/uL (3.80-5.40); WBC 12.2 k/uL (3.8-10.6)
[2023-09-04] MEDS: KETOROLAC 15 MG/ML 1 ML VIAL IVP STA ×2 (11:47→13:44)
[2023-09-04] MEDS: ONDANSETRON 4 MG/2 ML VIAL IVP STA (11:47)
[2023-09-04] MEDS: SODIUM CHLORIDE 0.9% 2,000 ML IV STA (11:48)
[2023-09-04 11:55] LABS: ALT 19 U/L (4-34); AST 20 U/L (14-36); African American GFR (CKD) >90 (>60 ml/min/1.73 sqM); Albumin 4.2 g/dL (3.5-5.0); Alkaline Phosphatase 81 U/L (38-126); Anion Gap 9 mmol/L; Blood Urea Nitrogen 11 mg/dL (7-17); Calcium 9.5 mg/dL (8.4-10.2); Carbon Dioxide 25 mmol/L (22-30); Chloride 106 mmol/L (98-107); Glucose 114 mg/dL (74-99); Lipase 58 U/L (23-300); Non-African American GFR(CKD) >90 (>60 ml/min/1.73 sqM); Potassium 4.1 mmol/L (3.5-5.1); Sodium 140 mmol/L (137-145); Total Bilirubin 0.4 mg/dL (0.2-1.3); Total Protein 7.6 g/dL (6.3-8.2)
--- NOTE | 2023-09-04 12:20 | XR ---
EXAMINATION TYPE: XR KUB DATE OF EXAM: 09/04/2023 Comparison: 03/19/2023 Clinical History: 23-year-old female right flank pain Findings: Lung bases are clear. No evidence for free intraperitoneal air. No dilated small bowel or air-fluid levels. Scattered mild stool. No suspicious calcifications are seen. Impression: No evidence for free air or bowel obstruction. No suspicious calcifications are clearly apparent by r adiograph.
--- NOTE | 2023-09-04 12:29 | ED ---
Abdominal Pain HPI - General Chief Complaint: Abdominal Pain Stated Complaint: R side kidney pain Time Seen by Provider: 09/04/23 10:36 Source: patient, RN notes reviewed Mode of arrival: ambulatory Limitations: no limitations - History of Present Illness Initial Comments: 23-year-old female presents emergency department complaint of right flank pain. There is a sudden onset of pain. She has associated nausea vomiting she does admit that she has history of kidney stones. Patient states pain feels very similar. Patient states it wraps from her right flank to lower abdomen on the right denies any fevers or chills no dysuria denies any chance of . - Related Data Home Medications Medication Instructions Recorded Confirmed Clotrimazole Cream [Lotrimin Cream] 1 applic TOPICAL BID 05/14/22 05/14/22 Fluticasone Nasal [place] [Flonase 2 spr EA NOSTRIL DAILY PRN 05/14/22 05/14/22 Nasal [place]] Montelukast [Singulair] 10 mg PO DAILY 05/14/22 05/14/22 Previous Rx's Medication Instructions Recorded Loratadine [Claritin] 10 mg PO DAILY #30 tab 08/31/17 Hydrocortisone Cream 1 applic TOPICAL BID PRN #30 gm 02/19/18 [Hydrocortisone 1% Cream] Ibuprofen 800 mg PO Q6HR PRN #20 tablet 05/28/19 Albuterol Inhaler [Ventolin Hfa 1 - 2 puff INHALATION RT-Q6H PRN 06/15/19 Inhaler] #1 inhaler Cephalexin [Keflex] 500 mg PO Q12HR #14 cap 02/20/23 Phenazopyridine [Pyridium] 200 mg PO TID #6 tablet 02/20/23 Ciprofloxacin HCl [Cipro] 500 mg PO Q12HR 10 Days #20 tab 03/19/23 HYDROcodone/APAP 5-325MG [[place] 1 tab PO Q6HR PRN #12 tab 03/19/23 5-325] Metoclopramide HCl [Reglan] 5 mg PO Q6H PRN #20 tab 03/19/23 Tamsulosin [Flomax] 0.4 mg PO DAILY #20 cap 03/19/23 Ketorolac [Toradol] 10 mg PO Q8HR #15 tab 09/04/23 Ondansetron Odt [Zofran Odt] 4 mg PO Q8HR PRN #10 tab 09/04/23 Tamsulosin [Flomax] 0.4 mg PO DAILY #7 cap 09/04/23 Allergies Allergy/AdvReac Type Severity Reaction Status Date / Time cat dander Allergy Unknown Verified 09/04/23 10:35 peanut Allergy Anaphylaxis Verified 09/04/23 10:35 tree nut Allergy Anaphylaxis Verified 09/04/23 10:35 Review of Systems ROS Statement: Those systems with pertinent positive or pertinent negative responses have been documented in the HPI. ROS Other: All systems not noted in ROS Statement are negative. Past Medical History Past Medical History: Asthma History of Any Multi-Drug Resistant Organisms: None Reported Past Surgical History: No Surgical Hx Reported Past Psychological History: No Psychological Hx Reported Smoking Status: Never smoker Past Alcohol Use History: None Reported Past Drug Use History: None Reported General Exam Limitations: no limitations General appearance: alert, in no apparent distress Head exam: Present: atraumatic, normocephalic, normal inspection Eye exam: Present: normal appearance, PERRL, EOMI. Absent: scleral icterus, conjunctival injection, periorbital swelling Neck exam: Present: normal inspection. Absent: tenderness, meningismus, lymphadenopathy Respiratory exam: Present: normal lung sounds bilaterally. Absent: respiratory distress, wheezes, rales, rhonchi, stridor Cardiovascular Exam: Present: regular rate, normal rhythm, normal heart sounds. Absent: systolic murmur, diastolic murmur, rubs, gallop, clicks GI/Abdominal exam: Present: soft, normal bowel sounds. Absent: distended, tenderness, guarding, rebound, rigid Back exam: Absent: CVA tenderness (R), CVA tenderness (L) Course Vital Signs 09/04/23 10:32 Temperature 98 F Pulse Rate 103 H Respiratory 20 Rate Blood Pressure 121/84 O2 Sat by Pulse 99 Oximetry Medical Decision Making - Medical Decision Making Was pt. sent in by a medical professional or institution (, PA, SECURITY DEVELOPER, urgent care, hospital, or penitentiary...) When possible be specific @ -No Did you speak to anyone other than the patient for history (EMS, parent, family, police, friend...)? What history was obtained from this source @ -No Did you review nursing and triage notes (agree or disagree)? Why? @ -I reviewed and agree with nursing and triage notes Were old charts reviewed (outside hosp., previous admission, EMS record, old EKG, old radiological studies, urgent care reports/EKG's, penitentiary records)? Report findings @ -No old charts were reviewed Differential Diagnosis (chest pain, altered mental status, abdominal pain women, abdominal pain men, vaginal bleeding, weakness, fever, dyspnea, syncope, headache, dizziness, GI bleed, back pain, seizure, CVA, palpatations, mental health, musculoskeletal)? @ -[Differential Abdominal Pain Women: Appendicitis, Cholecystitis, diverticulosis, ischemic bowel, pancreatitis, hepatitis, UTI, gastroenteritis, AAA, incarcerated hernia, bowel obstruction, constipation, inflammatory bowel, hepatitis, peptic ulcer disease, splenic infarction, perforated viscus, vulvitis, ovarian torsion, PID, kidney stone, placenta abruption, this is not meant to be an all-inclusive list EKG interpreted by me (3pts min.). @ -None X-rays interpreted by me (1pt min.). @ -X-ray KUB shows nonspecific bowel gas pattern no evidence of nephrolithiasis. CT interpreted by me (1pt min.). @ -None done U/S interpreted by me (1pt. min.). @ -None done What testing was considered but not performed or refused? (CT, X-rays, U/S, labs)? Why? @ -None What meds were considered but not given or refused? Why? @ -None Did you discuss the management of the patient with other professionals (professionals i.e. , PA, SECURITY DEVELOPER, lab, RT, psych nurse, criminal justice social worker, power press supervisor, teacher, safety and security officer, case mgr)? Give summary @ -No Was smoking cessation discussed for >3mins.? @ -No Was critical care preformed (if so, how long)? @ -No Were there social determinants of health that impacted care today? How? (Homelessness, low income, unemployed, alcoholism, drug addiction, transportation, low edu. Level, literacy, decrease access to med. care, prison, rehab)? @ -No Was there de-escalation of care discussed even if they declined (Discuss DNR or withdrawal of care, Hospice)? DNR status @ -No What co-morbidities impacted this encounter? (DM, HTN, Smoking, COPD, CAD, Cancer, CVA, ARF, Chemo, Hep., AIDS, mental health diagnosis, sleep apnea, morbid obesity)? @ -Kidney stone Was patient admitted / discharged? Hospital course, mention meds given and route, prescriptions, significant lab abnormalities, going to OR and other pert inent info. @ -[Discharge patient pain is improved nausea resolved. Patient has hematuria consistent with prior kidney stone. Patient will be discharged in stable condition return parameters were discussed. Undiagnosed new problem with uncertain prognosis? @ -No Drug Therapy requiring intensive monitoring for toxicity (Heparin, Nitro, Insulin, Cardizem)? @ -No Were any procedures done? @ -No Diagnosis/symptom? @ -Kidney stone, flank pain Acute, or Chronic, or Acute on Chronic? @ -Acute Uncomplicated (without systemic symptoms) or Complicated (systemic symptoms)? @ -Uncomplicated Side effects of treatment? @ -No Exacerbation, Progression, or Severe Exacerbation? @ -No Poses a threat to life or bodily function? How? (Chest pain, USA, NM, pneumonia, PE, COPD, DKA, ARF, appy, cholecystitis, CVA, Diverticulitis, Homicidal, Suicidal, threat to staff... and all critical care pts) @ -No - Lab Data Result diagrams: 09/04/23 11:28 09/04/23 11:28 Lab Results 09/04/23 09/04/23 09/04/23 Range/Units 11:28 11:28 12:23 WBC 12.2 H (3.8-10.6) k/uL RBC 5.24 (3.80-5.40) m/uL Hgb 14.1 (11.4-16.0) gm/dL Hct 44.6 (34.0-46.0) % MCV 85.1 (80.0-100.0) fL MCH 27.0 (25.0-35.0) pg MCHC 31.7 (31.0-37.0) g/dL RDW 14.0 (11.5-15.5) % Plt Count 516 H (150-450) k/uL MPV 7.7 Neutrophils % 80 % Lymphocytes % 14 % Monocytes % 4 % Eosinophils % 2 % Basophils % 1 % Neutrophils # 9.7 H (1.3-7.7) k/uL Lymphocytes # 1.7 (1.0-4.8) k/uL Monocytes # 0.5 (0-1.0) k/uL Eosinophils # 0.2 (0-0.7) k/uL Basophils # 0.1 (0-0.2) k/uL Sodium 140 (137-145) mmol/L Potassium 4.1 (3.5-5.1) mmol/L Chloride 106 (98-107) mmol/L Carbon Dioxide 25 (22-30) mmol/L Anion Gap 9 mmol/L BUN 11 (7-17) mg/dL Creatinine 0.71 (0.52-1.04) mg/dL Est GFR (CKD-EPI)AfAm >90 (>60 ml/min/1.73 sqM) Est GFR (CKD-EPI)NonAf >90 (>60 ml/min/1.73 sqM) Glucose 114 H (74-99) mg/dL Calcium 9.5 (8.4-10.2) mg/dL Total Bilirubin 0.4 (0.2-1.3) mg/dL AST 20 (14-36) U/L ALT 19 (4-34) U/L Alkaline Phosphatase 81 (38-126) U/L Total Protein 7.6 (6.3-8.2) g/dL Albumin 4.2 (3.5-5.0) g/dL Lipase 58 (23-300) U/L Urine Color Yellow Urine Appearance Turbid H (Clear) Urine pH 6.0 (5.0-8.0) Ur Specific [place] 1.034 (1.001-1.035) Urine Protein 1+ H (Negative) Urine Glucose (UA) Negative (Negative) Urine Ketones Trace H (Negative) Urine Blood Moderate H (Negative) Urine Nitrite Negative (Negative) Urine Bilirubin Negative (Negative) Urine Urobilinogen 2.0 (<2.0) mg/dL Ur Leukocyte Esterase Moderate H (Negative) Urine RBC >182 H (0-5) /hpf Urine WBC 8 H (0-5) /hpf Ur Squamous Epith Cells 38 H (0-4) /hpf Urine Bacteria Rare H (None) /hpf Urine Mucus Many H (None) /hpf Urine HCG, Qual (Not Detectd) 09/04/23 Range/Units 12:23 WBC (3.8-10.6) k/uL RBC (3.80-5.40) m/uL Hgb (11.4-16.0) gm/dL Hct (34.0-46.0) % MCV (80.0-100.0) fL MCH (25.0-35.0) pg MCHC (31.0-37.0) g/dL RDW (11.5-15.5) % Plt Count (150-450) k/uL MPV Neutrophils % % Lymphocytes % % Monocytes % % Eosinophils % % Basophils % % Neutrophils # (1.3-7.7) k/uL Lymphocytes # (1.0-4.8) k/uL Monocytes # (0-1.0) k/uL Eosinophils # (0-0.7) k/uL Basophils # (0-0.2) k/uL Sodium (137-145) mmol/L Potassium (3.5-5.1) mmol/L Chloride (98-107) mmol/L Carbon Dioxide (22-30) mmol/L Anion Gap mmol/L BUN (7-17) mg/dL Creatinine (0.52-1.04) mg/dL Est GFR (CKD-EPI)AfAm (>60 ml/min/1.73 sqM) Est GFR (CKD-EPI)NonAf (>60 ml/min/1.73 sqM) Glucose (74-99) mg/dL Calcium (8.4-10.2) mg/dL Total Bilirubin (0.2-1.3) mg/dL AST (14-36) U/L ALT (4-34) U/L Alkaline Phosphatase (38-126) U/L Total Protein (6.3-8.2) g/dL Albumin (3.5-5.0) g/dL Lipase (23-300) U/L Urine Color Urine Appearance (Clear) Urine pH (5.0-8.0) Ur Specific [place] (1.001-1.035) Urine Protein (Negative) Urine Glucose (UA) (Negative) Urine Ketones (Negative) Urine Blood (Negative) Urine Nitrite (Negative) Urine Bilirubin (Negative) Urine Urobilinogen (<2.0) mg/dL Ur Leukocyte Esterase (Negative) Urine RBC (0-5) /hpf Urine WBC (0-5) /hpf Ur Squamous Epith Cells (0-4) /hpf Urine Bacteria (None) /hpf Urine Mucus (None) /hpf Urine HCG, Qual Not Detected (Not Detectd) Disposition Clinical Impression: Kidney stone Disposition: HOME SELF-CARE Condition: Stable Instructions (If sedation given, give patient instructions): Kidney Stones (ED) Additional Instructions: Please return to the Emergency Department if symptoms worsen or any other concerns. Prescriptions: Tamsulosin [Flomax] 0.4 mg PO DAILY #7 cap Ketorolac [Toradol] 10 mg PO Q8HR #15 tab Ondansetron Odt [Zofran Odt] 4 mg PO Q8HR PRN #10 tab PRN Reason: Nausea Is patient prescribed a controlled substance at d/c from ED?: No Referrals: Neela Bailon MD [Primary Care Provider] - 1-2 days Velasquez Hubbard MD [STAFF PHYSICIAN] - 1-2 days Time of Disposition: 13:39
[2023-09-04 12:53] LABS: Appearance,Urine Turbid (Clear); Bacteria,Urine Rare /hpf; Bilirubin,Urine Negative (Negative); Blood,Urine Moderate (Negative); Color,Urine Yellow; Glucose,Urine (UA) Negative (Negative); Ketones,Urine Trace (Negative); Leukocyte Esterase,Urine Moderate (Negative); Mucus,Urine Many /hpf; Nitrite,Urine Negative (Negative); Protein,Urine 1+ (Negative); RBC,Urine >182 /hpf (0-5); Specific Gravity,Urine 1.034 (1.001-1.035); Squamous Epithelial Cell,Urine 38 /hpf (0-4); WBC,Urine 8 /hpf (0-5)
[2023-09-04] MEDS: ACET/COD 300 MG/30 MG STARTER PACK 6 TAB BTL PO STA (13:45)
[2023-09-04 14:21] VITALS: BP 132/85; PULSE 116
== END 2023-09-04 14:41 | disposition home or self-care (01) ==
LOC: EC 10:23
DX: N20.0 Calculus of kidney (principal); Z91.010 Allergy to peanuts; Z88.8 Allergy status to other drugs, medicaments and biological substances
CPT/HCPCS: 36415; 80053; 83690; 85025; 81001; 81025; 74018; 96374; 96375; 96376; 96361; 99284; J2405; J1885

== ENCOUNTER → 2024-07-02 | Outpatient (CLI) | payer OTHER ==
--- NOTE | 2024-07-02 11:54 | CT ---
EXAMINATION TYPE: CT ChestAbdPelvis w con DATE OF EXAM: 07/02/2024 11:24 AM COMPARISON: 03/19/2023 CLINICAL INDICATION: Female, 24 years old with history of Z80.8 FAMILY HISTORY OF MALIGNANT NEOPLASM OF ORGA, Scan for family hx of colon ca Technique: CT ChestAbdPelvis w con; Multiple axial images were obtained. Two-dimensional coronal and sagittal reconstructions were obtained. Contrast used:100 mL of Isovue 300 with IV Contrast, (None if empty) Oral contrast used: with Oral Contrast CT DLP: 1947 mGycm, Automated exposure control for dose reduction was used. Findings: CHEST: LUNGS/ PLEURA: No focal consolidation, pneumothorax or pleural effusion. AIRWAY: Patent and unremarkable. HEART: Size within normal limits. No significant coronary artery calcifications. MEDIASTINUM: No gross evidence of adenopathy. VASCULATURE: No aortic aneurysm. MUSCULOSKELETAL: No acute osseous abnormalities. SOFT TISSUES/LYMPH NODES: Unremarkable. LOWER NECK: No significant findings. ABDOMEN: ABDOMEN LIVER: Unremarkable GALLBLADDER AND BILE DUCTS: Unremarkable. PANCREAS: Unremarkable. SPLEEN: Unremarkable. ADRENAL GLANDS: Unremarkable. KIDNEYS AND URETERS: No evidence of hydronephrosis or renal calculus. The ureters are unremarkable. PELVIS BLADDER: Unremarkable REPRODUCTIVE: Unremarkable. ABDOMEN & PELVIS STOMACH AND BOWEL: No evidence of bowel obstruction. Evaluation of the colon is [limited without rect al contrast.] Limitation there is no evidence for wall thickening identified PERITONEUM/RETROPERITONEUM: No evidence of pneumoperitoneum or free fluid. VASCULATURE: No evidence of aortic aneurysm. MUSCULOSKELETAL: No acute osseous abnormalities LYMPH NODES: No gross evidence for lymphadenopathy. SOFT TISSUE/ABDOMINAL WALL: Unremarkable IMPRESSION: * Limited evaluation without contrast in the colon or rectum. * No obvious mass or lymphadenopathy identified. [facility], , 07/02/2024 11:52 AM
== END | disposition home or self-care (01) ==
LOC: RADCTMAIN 09:03
PROVIDERS: ATTEND Internal Medicine Hematology & Oncology
DX: D72.829 Elevated white blood cell count, unspecified (principal); L25.9 Unspecified contact dermatitis, unspecified cause; Z80.8 Family history of malignant neoplasm of other organs or systems; J45.998 Other asthma; Z68.42 Body mass index [BMI] 45.0-49.9, adult
CPT/HCPCS: 71260; 74177; Q9967